=== PATIENT | female | born 1975 | race Caucasian/White ===

== ENCOUNTER 2016-11-18 07:04 | Observation (INO) | payer OTHER ==
[~2016-11-18] VITALS: Ht 172.7 cm; Wt 156.8 kg
[~2016-11-18 07:04] MED LIST: K-DUR 10 MEQ T10 MEQ PO; LASIX 20MG TABL20 MG PO; MOBIC 7.5MG7.5 MG PO; PRINIVIL10 MG PO
[2016-11-18 07:47] LABS: BASO # 0.1 (0.0-0.2); BASO % 0.9 % (0.0-2.0); EOS # 0.1 (0.0-0.7); EOS % 0.7 % (0-4.0); GRAN # 5.7 (1.4-6.5); GRAN % 56.9 % (42.2-75.2); HEMATOCRIT 40.6 % (37.0-47.0); HEMOGLOBIN 13.5 g/dl (12.5-16.0); LYMPH # 3.3 (1.2-3.4); LYMPH % 33.2 % (20.0-51.0); MEAN CELL VOLUME 85 fl (80.0-100.0); MEAN CORPUSCULAR HEMOGLOBIN 28 pg (27.0-31.0); MEAN CORPUSCULAR HGB CONC 33 g/dl (33.0-37.0); MEAN PLATELET VOLUME 11.3 fl (7.4-10.4); MONO # 0.8 (0.1-0.6); PLATELET COUNT 274 K/mm3 (130-400); RED BLOOD COUNT 4.76 M/mm3 (4.10-5.30); WHITE BLOOD COUNT 10.1 K/mm3 (4.8-10.8)
[2016-11-18 08:00] LABS: ADJUSTED CALCIUM 8.9 mg/dL (8.4-10.2); ALANINE AMINOTRANSFERASE 39 U/L (9-52); ALBUMIN 4.3 gm/dL (3.5-5.0); ALKALINE PHOSPHATASE 80 U/L (50-136); ANION GAP 14 mmol/L (7-16); BILIRUBIN,TOTAL 0.9 mg/dL (0.0-1.0); BLOOD UREA NITROGEN 16 mg/dL (7-17); CALCIUM 9.1 mg/dL (8.4-10.2); CARBON DIOXIDE 26 mmol/L (22-30); CHLORIDE 99 mmol/L (98-107); CREATINE KINASE 29 U/L (30-135); CREATININE, serum 0.72 mg/dL (0.52-1.25); GLUCOSE 96 mg/dL (74-106); LIPASE 174 U/L (23-300); POTASSIUM 3.8 mmol/L (3.4-5.0); SODIUM 139 mmol/L (137-145); TOTAL PROTEIN 8.2 gm/dL (6.4-8.2)
[2016-11-18] MEDS ORDERED: BUSPAR10 MG PO (08:09)
[2016-11-18] MEDS ORDERED: PROTONIX 40MG T40 MG PO (08:09)
[2016-11-18] MEDS ORDERED: CLARITIN 1010 MG/TAB PO (08:09)
[2016-11-18] MEDS ORDERED: LASIX 40MG TABL40 MG PO (08:09)
[2016-11-18 08:10] LABS: B-TYPE NATRIURETIC PEPTIDE 31 pg/mL (0-125)
[2016-11-18] MEDS ORDERED: VITAMIN D 1001000 IU PO (08:10)
[2016-11-18] MEDS ORDERED: VICTOZA6 MG/ML SQ (08:11)
[2016-11-18] MEDS ORDERED: B-121000 MCG PO (08:11)
[2016-11-18] MEDS ORDERED: LAMICTAL XR50 MG PO (08:12)
[2016-11-18] MEDS ORDERED: CYMBALTA 60MG60 MG PO (08:12)
[2016-11-18] MEDS ORDERED: TOPROL XL 50MG50 MG PO (08:12)
[2016-11-18] MEDS ORDERED: DESYREL 50MG50 MG PO (08:13)
[2016-11-18 08:19] LABS: TROPONIN-I < 0.012 ng/mL (0.000-0.034)
[2016-11-18] MEDS ORDERED: ZYRTEC 10MG10 MG PO (10:06)
[2016-11-18 10:07] VITALS: BP 120/73; PULSE 88; TEMP 98.3
[2016-11-18 12:25] VITALS: BP 115/54; PULSE 78; TEMP 97.7
[2016-11-18 12:44] LABS: CHOLESTEROL 172 mg/dL (120-200); HDL CHOLESTEROL 40 mg/dL; LDL CHOLESTEROL 107 mg/dL; TRIGLYCERIDE 124 mg/dL
[2016-11-18 13:15] VITALS: BP 115/54; PULSE 78
[2016-11-18 16:00] VITALS: BP 118/68; PULSE 78; TEMP 97.7
[2016-11-18 16:04] VITALS: BP 152/85; PULSE 107
[2016-11-18 16:05] VITALS: BP 138/77; PULSE 98
[2016-11-18] MEDS ORDERED: ZESTRIL 20MG TA20 MG PO (16:51)
== END 2016-11-18 17:45 | disposition home or self-care (01) ==
LOC: COL.ER 07:04 → MEDICAL 09:12
PROVIDERS: Emergency Medicine
DX: R07.89 Other chest pain (principal); R00.0 Tachycardia, unspecified; I10 Essential (primary) hypertension; I87.2 Venous insufficiency (chronic) (peripheral); E66.01 Morbid (severe) obesity due to excess calories; F32.9 Major depressive disorder, single episode, unspecified; F41.9 Anxiety disorder, unspecified; Z90.49 Acquired absence of other specified parts of digestive tract; Z82.49 Family history of ischemic heart disease and other diseases of the circulatory system
CPT/HCPCS: A9502; G0378; J2785

== ENCOUNTER → 2016-11-23 | Outpatient (CLI) | payer OTHER ==
[~2016-11-23] MED LIST changes: +B-121000 MCG PO; +BUSPAR10 MG PO; +CLARITIN 1010 MG/TAB PO; +CYMBALTA 60MG60 MG PO; +DESYREL 50MG50 MG PO; +LAMICTAL XR50 MG PO; +LASIX 40MG TABL40 MG PO; +PROTONIX 40MG T40 MG PO; +TOPROL XL 50MG50 MG PO; +VICTOZA6 MG/ML SQ; +VITAMIN D 1001000 IU PO; +ZESTRIL 20MG TA20 MG PO; +ZYRTEC 10MG10 MG PO
== END ==
LOC: COL.VAS 08:00
DX: R07.89 Other chest pain (principal)

== ENCOUNTER → 2017-05-31 | Outpatient (CLI) | payer OTHER | LOC: MC.RAD 08:04 | DX: N64.89 Other specified disorders of breast (principal); N63.10 Unspecified lump in the right breast, unspecified quadrant ==

== ENCOUNTER → 2018-03-08 | Outpatient (CLI) | payer OTHER ==
[~2018-03-08] VITALS: Ht 170.2 cm; Wt 162.2 kg
[~2018-03-08] MED LIST changes: +CELEBREX 200MG200 MG PO; +LAMICTAL 25MG T25 MG PO; -LAMICTAL XR50 MG PO; -TOPROL XL 50MG50 MG PO; +TOPROL XL100 MG PO; -VITAMIN D 1001000 IU PO; +VITAMIND3 5000 PO
[2018-03-08 08:33] VITALS: BP 136/88; PULSE 72
== END ==
LOC: LIGHT 07:51
DX: G47.33 Obstructive sleep apnea (adult) (pediatric) (principal); E88.81 Metabolic syndrome and other insulin resistance; E66.01 Morbid (severe) obesity due to excess calories; Z68.43 Body mass index [BMI] 50.0-59.9, adult; Z71.3 Dietary counseling and surveillance
CPT/HCPCS: G0463

== ENCOUNTER → 2018-04-12 | Outpatient (CLI) | payer OTHER ==
[~2018-04-12] VITALS: Ht 170.2 cm; Wt 159.4 kg
[~2018-04-12] MED LIST changes: -LASIX 40MG TABL40 MG PO
[2018-04-12 12:08] VITALS: BP 130/82; PULSE 80
== END ==
LOC: LIGHT 11:32
DX: G47.33 Obstructive sleep apnea (adult) (pediatric) (principal); E88.81 Metabolic syndrome and other insulin resistance; E66.01 Morbid (severe) obesity due to excess calories; Z68.43 Body mass index [BMI] 50.0-59.9, adult; Z71.3 Dietary counseling and surveillance
CPT/HCPCS: G0463

== ENCOUNTER → 2018-05-08 | Outpatient (CLI) | payer OTHER | LOC: LIGHT 13:45 | DX: G47.33 Obstructive sleep apnea (adult) (pediatric) (principal); E88.81 Metabolic syndrome and other insulin resistance; R73.01 Impaired fasting glucose; E66.01 Morbid (severe) obesity due to excess calories; Z68.43 Body mass index [BMI] 50.0-59.9, adult; Z71.3 Dietary counseling and surveillance ==

== ENCOUNTER → 2018-05-08 | Outpatient (CLI) | payer OTHER | LOC: LIGHT 15:05 | DX: G47.33 Obstructive sleep apnea (adult) (pediatric) (principal); E88.81 Metabolic syndrome and other insulin resistance; R73.01 Impaired fasting glucose; E66.01 Morbid (severe) obesity due to excess calories; Z68.43 Body mass index [BMI] 50.0-59.9, adult; Z71.3 Dietary counseling and surveillance ==

== ENCOUNTER → 2018-05-24 | Outpatient (CLI) | payer OTHER ==
[~2018-05-24] VITALS: Ht 170.2 cm; Wt 155.8 kg
== END ==
LOC: LIGHT 10:30
DX: G47.33 Obstructive sleep apnea (adult) (pediatric) (principal); E88.81 Metabolic syndrome and other insulin resistance; R73.01 Impaired fasting glucose; E66.01 Morbid (severe) obesity due to excess calories; Z71.3 Dietary counseling and surveillance
CPT/HCPCS: G0463

== ENCOUNTER → 2018-08-09 | Outpatient (CLI) | payer OTHER ==
[~2018-08-09] VITALS: Ht 170.2 cm; Wt 152.0 kg
[2018-08-09 16:00] VITALS: BP 124/80; PULSE 86
== END ==
LOC: LIGHT 07-05 15:19
DX: G47.33 Obstructive sleep apnea (adult) (pediatric) (principal); E88.81 Metabolic syndrome and other insulin resistance; R73.01 Impaired fasting glucose; E66.01 Morbid (severe) obesity due to excess calories; Z71.3 Dietary counseling and surveillance

== ENCOUNTER → 2018-09-11 | Outpatient (CLI) | payer OTHER | LOC: BHSO 08:49 | DX: Z01.818 Encounter for other preprocedural examination (principal); E66.01 Morbid (severe) obesity due to excess calories ==

== ENCOUNTER → 2018-09-27 | Outpatient (CLI) | payer OTHER ==
[~2018-09-27] VITALS: Ht 170.2 cm; Wt 150.1 kg
[2018-09-27 11:06] VITALS: BP 110/80; PULSE 64
== END ==
LOC: LIGHT 10:48
DX: G47.33 Obstructive sleep apnea (adult) (pediatric) (principal); E88.81 Metabolic syndrome and other insulin resistance; R73.01 Impaired fasting glucose; E66.01 Morbid (severe) obesity due to excess calories; Z68.43 Body mass index [BMI] 50.0-59.9, adult; Z71.3 Dietary counseling and surveillance
CPT/HCPCS: G0463

== ENCOUNTER → 2018-10-09 | Outpatient (CLI) | payer OTHER ==
[~2018-10-09] VITALS: Ht 170.2 cm; Wt 149.2 kg
== END ==
LOC: LIGHT 13:57
DX: G47.33 Obstructive sleep apnea (adult) (pediatric) (principal); E88.81 Metabolic syndrome and other insulin resistance; R73.01 Impaired fasting glucose; E66.01 Morbid (severe) obesity due to excess calories; Z68.43 Body mass index [BMI] 50.0-59.9, adult; Z71.3 Dietary counseling and surveillance

== ENCOUNTER → 2018-11-19 | Outpatient (CLI) | payer OTHER ==
[~2018-11-19] VITALS: Ht 170.2 cm; Wt 141.1 kg
[~2018-11-19] MED LIST changes: +LASIX 40MG TABL40 MG PO
[2018-11-19 14:59] VITALS: BP 116/70; PULSE 84
== END ==
LOC: LIGHT 11:24
DX: G47.33 Obstructive sleep apnea (adult) (pediatric) (principal); E88.81 Metabolic syndrome and other insulin resistance; Z98.84 Bariatric surgery status; E66.01 Morbid (severe) obesity due to excess calories; Z68.42 Body mass index [BMI] 45.0-49.9, adult; Z71.3 Dietary counseling and surveillance

== ENCOUNTER → 2018-12-31 | Outpatient (CLI) | payer OTHER ==
[~2018-12-31] VITALS: Ht 170.2 cm; Wt 132.2 kg
[2018-12-31 17:08] VITALS: BP 120/82; PULSE 76
== END ==
LOC: LIGHT 15:37
DX: G43.909 Migraine, unspecified, not intractable, without status migrainosus (principal); E88.81 Metabolic syndrome and other insulin resistance; Z98.84 Bariatric surgery status; E66.01 Morbid (severe) obesity due to excess calories; Z68.42 Body mass index [BMI] 45.0-49.9, adult; Z71.3 Dietary counseling and surveillance

== ENCOUNTER → 2019-04-22 | Outpatient (CLI) | payer OTHER ==
[~2019-04-22] VITALS: Ht 170.2 cm; Wt 120.7 kg
[2019-04-22 14:04] VITALS: BP 124/80; PULSE 76
== END ==
LOC: LIGHT 13:53
DX: G47.33 Obstructive sleep apnea (adult) (pediatric) (principal); E88.81 Metabolic syndrome and other insulin resistance; Z98.84 Bariatric surgery status; E66.01 Morbid (severe) obesity due to excess calories; Z68.41 Body mass index [BMI] 40.0-44.9, adult; Z71.3 Dietary counseling and surveillance
CPT/HCPCS: G0463

== ENCOUNTER → 2019-12-16 | Outpatient (CLI) | payer OTHER ==
[~2019-12-16] VITALS: Ht 170.2 cm; Wt 123.2 kg
[2019-12-16 16:44] VITALS: BP 110/80; PULSE 76
== END ==
LOC: LIGHT 09:31
DX: Z68.41 Body mass index [BMI] 40.0-44.9, adult (principal); E88.81 Metabolic syndrome and other insulin resistance; Z98.84 Bariatric surgery status; G47.30 Sleep apnea, unspecified
CPT/HCPCS: G0463